=== PATIENT | male | born 1935 | race Caucasian/White ===

== ENCOUNTER 2019-02-27 04:00 | Outpatient (RCR) | payer MEDICARE, OTHER, MEDICAID, SELFPAY | END 2019-03-20 00:01 | LOC: LAB 04:00 | PROVIDERS: Family Provider Family Medicine; Visit Provider Physician Assistant | DX: N39.0 Urinary tract infection, site not specified (principal) | CPT/HCPCS: 81001; 87086 ×2; 87186 ==

== ENCOUNTER 2020-06-24 16:24 | Outpatient (CLI) | payer MEDICARE, OTHER, MEDICAID, SELFPAY ==
[2020-06-24 16:42] LABS: Basophils % 0.4 %; Eosinophils # 0.2 10^3/uL (0.0-0.8); Eosinophils % 1.7 %; Hematocrit 41.6 % (42.0-52.0); Hemoglobin 13.7 g/dL (11.7-16.6); Lymphocytes # 2.2 10^3/uL (0.8-4.8); Lymphocytes % 21.8 %; Mean Corpuscular HGB Conc 32.9 g/dL (30.0-36.0); Mean Corpuscular Hemoglobin 28.8 pg (28.0-34.0); Mean Corpuscular Volume 87.4 fL (80-94); Mean Platelet Volume 10.9 fL (7.4-10.4); Monocytes % 10.3 %; Neutrophils # 6.39 10^3/uL (1.8-7.7); Neutrophils % 64.5 %; Nucleated Red Blood Cells % 0 %; Platelet Count 230 10^3/cmm (130-400); Red Blood Count 4.76 10^6/uL (4.1-5.3); Red Cell Distribution Width 14.9 % (12.1-15.1); White Blood Count 9.9 10^3/uL (4.0-10.0)
== END 2020-06-24 16:25 | disposition home or self-care (01) ==
LOC: LAB 16:29
PROVIDERS: PCP Family Medicine; Visit Provider Family Medicine
DX: K62.5 Hemorrhage of anus and rectum (principal)
CPT/HCPCS: 85025

== ENCOUNTER 2020-06-25 22:05 | Emergency (ER) | payer MEDICARE, OTHER, MEDICAID, SELFPAY ==
[2020-06-25 22:12] VITALS: BP 108/73; PULSE 86; RESP 18; TEMP 36.8; O2SAT 96; BMI 27.1
--- NOTE | 2020-06-25 22:24 | W.ED.NAVMDI ---
HPI - Nausea/Vomiting/Diarrhea General: Chief complaint: Nausea/Vomiting/Diarrhea Stated complaint: upper gi bleed Time Seen by Provider: 06/25/20 22:06 Source: EMS Mode of arrival: EMS Limitations: altered mental status History of Present Illness: HPI Narrative: 85-year-old male who is here from local [facility] with a history of severe dementia and unable to give any history himself. Per [facility] patient has had some bright red blood in his stools last 2 days. He had hemoglobin checked yesterday it was normal. He had one episode of vomiting today that they state was darker and was concerned he is having upper GI bleed. Patient stool here is brown with no signs of blood at this time. He will follow commands and his vital signs here are stable. He does not appear to be in any pain. He had no fever. Associated symtoms: Reports altered mental status Review of Systems General: Reports: ROS unobtainable due to mental status GI: Reports: vomiting and hematochezia Physical Exam Const: COMMON NORMALS: no acute distress; negative for patient oriented x3 EXAM LIMITATIONS: altered mental status HENMT: COMMON NORMALS: normocephalic and atraumatic HEAD & SCALP: normocephalic and atraumatic Eye: COMMON NORMALS: Equal, round and reactive pupils present and EOMs intact bilaterally PUPIL: Yes Equal, round and reactive pupils present Neck/C-Spine: COMMON NORMALS: full ROM and supple Chest: COMMONS NORMALS: normal inspection of the chest and normal palpation of entire chest wall Resp: COMMON NORMALS: normal respiratory effort, No retractions, No use of accessory muscles and clear to auscultation bilaterally AUSCULTATION: clear to auscultation bilaterally Cardio: COMMON NORMALS: regular rate, regular rhythm and No murmurs present (Cardio) RATE: regular rate RHYTHM: regular rhythm GI: COMMON NORMALS: Normal to inspection, nondistended, normoactive bowel sounds present, Soft to palpation, non-tender and no masses PALPATION: Yes Soft to palpation RECTAL EXAM: Yes heme negative stool Extremity: COMMON NORMALS: normal to inspection and full ROM Neuro: COMMON NORMALS: moves all extremities and no focal motor deficits; negative for patient oriented x3 Psych: COMMON NORMALS: cooperative; negative for mental status grossly normal Skin: COMMON NORMALS: no rashes or lesions noted and no wounds GENERAL SKIN EXAM: no rashes or lesions noted Course Vital Signs: Vital signs: Vital Signs Temperature 98.2 F 06/25/20 22:12 Pulse Rate 85 06/25/20 23:17 Respiratory Rate 17 06/25/20 23:17 Blood Pressure 131/74 06/25/20 23:17 Pulse Oximetry 98 06/25/20 23:17 MDM - Nausea/Vomiting/Diarrhea MDM Narrative: Medical decision making narrative: Patient presents here with possible GI bleed. He has had no vomiting here. His hemoglobin and vital signs are all stable. He does not have an increased BUN/creatinine ratio. He has no signs of upper GI bleed. His rectal exam here was negative with brown stool and Hemoccult negative. Spoke to daughter and informed her we could do a NG tube and Gastroccult the gastric contents which she did not believe was necessary and I agree at this time as well. Patient is stable for discharge back to [facility] is to follow hemoglobin return if worsening. Lab Data: Labs: Lab Results 06/25/20 06/25/20 06/25/20 Range/Units 22:10 22:10 22:10 WBC Cancelled Corrected WBC Cancelled RBC Cancelled Hgb Cancelled Hct Cancelled MCV Cancelled MCH Cancelled MCHC Cancelled RDW Cancelled Plt Count Cancelled MPV Cancelled Gran % Cancelled Neut % (Auto) Cancelled Lymph % (Auto) Cancelled Rhea % (Auto) Cancelled Eos % (Auto) Cancelled Baso % (Auto) Cancelled Neut # (Auto) Cancelled Lymph # (Auto) Cancelled Rhea # (Auto) Cancelled Eos # (Auto) Cancelled Baso # (Auto) Cancelled Absolute Gran (aut o) Cancelled Nucleated RBC % (a uto) Cancelled Nucleated RBCs # Cancelled PT Cancelled INR Cancelled Sodium 137 (136-145) mmol/L Potassium 4.9 (3.5-5.1) mmol/L Chloride 102 (98-107) mmol/L Carbon Dioxide 24 (22-29) mmol/L Anion Gap 15.9 (5-19) BUN 19 (8-23) mg/dL Creatinine 0.9 (0.7-1.2) mg/dL GFR Calculation Not Reportable Glucose 100 (65-115) mg/dL Calculated Osmolal ity 286 (285-295) mOsm/k g Calcium 9.6 (8.5-10.5) mg/dL Total Bilirubin 0.5 (0.15-1.2) mg/dL AST 24 (0-40) U/L ALT 34 (0-41) U/L Alkaline Phosphata se 91 (40-130) IU/L Total Protein 6.8 (6.6-8.7) g/dL Albumin 4.3 (3.5-5.2) g/dL Globulin 2.5 (1.3-4.6) g/dL 06/25/20 06/25/20 Range/Units 22:44 22:44 WBC 10.8 H Corrected WBC RBC 4.68 Hgb 13.3 Hct 40.7 L MCV 87.0 MCH 28.4 MCHC 32.7 RDW 14.6 Plt Count 204 MPV 10.8 H Gran % Neut % (Auto) 73.3 Lymph % (Auto) 15.3 Rhea % (Auto) 8.9 Eos % (Auto) 1.1 Baso % (Auto) 0.4 Neut # (Auto) 7.90 H Lymph # (Auto) 1.7 Rhea # (Auto) 1.0 H Eos # (Auto) 0.1 Baso # (Auto) 0.0 Absolute Gran (aut o) Nucleated RBC % (a uto) 0 Nucleated RBCs # 0.0 PT 14.00 INR 1.05 Sodium (136-145) mmol/L Potassium (3.5-5.1) mmol/L Chloride (98-107) mmol/L Carbon Dioxide (22-29) mmol/L Anion Gap (5-19) BUN (8-23) mg/dL Creatinine (0.7-1.2) mg/dL GFR Calculation Glucose (65-115) mg/dL Calculated Osmolal ity (285-295) mOsm/k g Calcium (8.5-10.5) mg/dL Total Bilirubin (0.15-1.2) mg/dL AST (0-40) U/L ALT (0-41) U/L Alkaline Phosphata se (40-130) IU/L Total Protein (6.6-8.7) g/dL Albumin (3.5-5.2) g/dL Globulin (1.3-4.6) g/dL Discharge Plan Discharge Patient Disposition: Home Clinical Impression: Vomiting Qualifiers: Vomiting type: unspecified Vomiting Intractability: non-intractable Nausea presence: with nausea Qualified Code(s): R11.2 - Nausea with vomiting, unspecified Condition: Stable Prescriptions: New ondansetron 4 mg tablet,disintegrating 4 mg PO Q6H PRN (Reason: nausea and vomiting) Qty: 14 RF: 0 Discharge Orders: Discharge ED (Routine); Ordered 06/25/20 Ordered By: Zuly Byrne Referrals: Hever Jacobsen MD [Primary Care Provider] - 1-3 days Discharge Diet: Advance as tolerated Discharge Activity: Resume usual activity Patient Instructions: Acute Nausea and Vomiting (ED) Coding Level of Care Code ED Pharmaceutical Service Representative for [facility] Fwd Exam Comprehensive
[2020-06-25 22:36] LABS: Alanine Aminotransferase 34 U/L (0-41); Albumin Level 4.3 g/dL (3.5-5.2); Alkaline Phosphatase 91 IU/L (40-130); Anion Gap 15.9 (5-19); Aspartate Amino Transferase 24 U/L (0-40); Blood Urea Nitrogen 19 mg/dL (8-23); Calcium 9.6 mg/dL (8.5-10.5); Carbon Dioxide 24 mmol/L (22-29); Chloride 102 mmol/L (98-107); Globulin 2.5 g/dL (1.3-4.6); Glucose 100 mg/dL (65-115); Osmolality Calculated 286 mOsm/kg (285-295); Potassium 4.9 mmol/L (3.5-5.1); Sodium 137 mmol/L (136-145); Total Bilirubin 0.5 mg/dL (0.15-1.2); Total Protein 6.8 g/dL (6.6-8.7)
[2020-06-25 22:54] LABS: Basophils % 0.4 %; Eosinophils # 0.1 10^3/uL (0.0-0.8); Eosinophils % 1.1 %; Hematocrit 40.7 % (42.0-52.0); Hemoglobin 13.3 g/dL (11.7-16.6); Lymphocytes # 1.7 10^3/uL (0.8-4.8); Lymphocytes % 15.3 %; Mean Corpuscular HGB Conc 32.7 g/dL (30.0-36.0); Mean Corpuscular Hemoglobin 28.4 pg (28.0-34.0); Mean Platelet Volume 10.8 fL (7.4-10.4); Monocytes % 8.9 %; Neutrophils % 73.3 %; Nucleated Red Blood Cells % 0 %; Platelet Count 204 10^3/cmm (130-400); Red Blood Count 4.68 10^6/uL (4.1-5.3); Red Cell Distribution Width 14.6 % (12.1-15.1); White Blood Count 10.8 10^3/uL (4.0-10.0)
[2020-06-25 23:04] LABS: INR 1.05 (0.8-1.2)
[2020-06-25 23:17] VITALS: BP 131/74; PULSE 85; RESP 17; O2SAT 98
[2020-06-25 23:57] VITALS: BP 124/70; PULSE 78; RESP 18; O2SAT 99
== END 2020-06-26 00:18 | disposition home or self-care (01) ==
PROVIDERS: Emergency Provider Emergency Medicine; PCP Family Medicine
DX: R11.2 Nausea with vomiting, unspecified (principal)
CPT/HCPCS: 36415; 80053; 85025; 85610; 86850; 86900; 99283

== ENCOUNTER 2021-01-26 19:03 | Emergency (ER) | payer MEDICARE, OTHER, MEDICAID, SELFPAY ==
[2021-01-26 19:22] VITALS: BP 127/56; PULSE 76; RESP 19; TEMP 36.6; O2SAT 98; BMI 28.2
--- NOTE | 2021-01-26 19:24 | ED_ITS ---
HPI - GI Bleed General: Chief complaint: GI Bleed Stated complaint: RECTAL BLEEDING Time Seen by Provider: 01/26/21 19:23 History of Present Illness: HPI Narrative: 86-year-old male with history of dementia presents from nursing facility GI bleed. He did not complain of any abdominal pain but approximately an hour and half prior to arrival they noted bright red blood on his diaper. He denies any focal pain or focal complaints. According to paperwork he is not on blood thinners. History is otherwise very limited due to his dementia. Review of medical chart reveals similar episode several months ago. That time was decided not to pursue aggressive treatments by family due to severe dementia. Review of Systems Narrative: - CONSTITUTIONAL: Denies weight loss, fever and chills. - HEENT: Denies changes in vision and hearing. - RESPIRATORY: Denies SOB and cough. - CV: Denies palpitations and CP. - GI: Denies abdominal pain, nausea, vomiting and diarrhea. Positive for GI bleed. - : Denies dysuria and urinary frequency. - MSK: Denies myalgia and joint pain. - SKIN: Denies rash and pruritus. - NEUROLOGICAL: Denies headache, weakness, numbness and syncope. - PSYCHIATRIC: Denies suicidal ideation Physical Exam Narrative: EXAM NARRATIVE: - GENERAL: Alert and oriented to self only, according to retirement staff this is his baseline. No acute distress. Well- nourished. - EYES: EOMI. Anicteric. - HENT: Atraumatic, no C-spine tenderness. Moist mucous membranes. No scleral icterus. No cervical lymphadenopathy. - LUNGS: Clear to auscultation bilaterally. No accessory muscle use. Equal lung sounds bilaterally. No respiratory distress. - CARDIOVASCULAR: Regular rate and rhythm. No murmur. No JVD. - ABDOMEN: Soft, mild diffuse tenderness, non-distended. Negative CVA tenderness bilaterally, no rebound or guarding, negative Farrell sign. No palpable masses. - EXTREMITIES: No edema. Non-tender. - SKIN: No rashes or lesions. Warm. - NEUROLOGIC: No meningismus or focal neurological deficits. CN II-XII grossly intact. - PSYCHIATRIC: Cooperative. Appropriate mood and affect. Course Vital Signs: Vital signs: Vital Signs Temperature 98 F 01/26/21 19:22 Pulse Rate 79 01/26/21 20:02 Respiratory Rate 14 01/26/21 20:02 Blood Pressure 135/69 01/26/21 20:38 Pulse Oximetry 97 01/26/21 20:02 MDM - GI Bleed MDM Narrative: Medical decision making narrative: 86-year-old with history of dementia presents due to rectal bleeding. He is hemodynamically stable afebrile nontoxic-appearing. His mental status is at his baseline due to his dementia. 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 Discussed with family and at this time do not desire further intervention. Referral for social work to coordinate palliative care was ordered per family request. At this time I believe patient would be safe for discharge and outpatient follow-up. Return precautions provided. Plan was reviewed with the family who expressed understanding. Questions answered. Patient will follow up with PCP. Patient discharged in stable condition. Lab Data: Labs: Lab Results 01/26/21 01/26/21 01/26/21 19:30 19:30 19:30 WBC 11.6 10^3/uL H 10 ^3/uL (4.0-10.0) RBC 4.03 10^6/uL L 10 ^6/uL (4.1-5.3) Hgb 10.2 g/dL L g/dL (11.7-16.6) Hct 32.6 % L % (42.0-52.0) MCV 80.9 fl fl (80-94) MCH 25.3 pg L pg (28.0-34.0) MCHC 31.3 g/dL g/dL (30.0-36.0) RDW 15.5 % H % (12.1-15.1) Plt Count 263 10^3/cmm 10^3 /cmm (130-400) MPV 10.8 fL H fL (7.4-10.4) Neut % (Auto) 69.0 % % Lymph % (Auto) 16.8 % % Mckenzie % (Auto) 11.3 % % Eos % (Auto) 2.0 % % Baso % (Auto) 0.4 % % Neut # (Auto) 8.03 10^3/uL H 10 ^3/uL (1.8-7.7) Lymph # (Auto) 2.0 10^3/uL 10^3/ uL (0.8-4.8) Mckenzie # (Auto) 1.3 10^3/uL H 10^ 3/uL (0.2-0.9) Eos # (Auto) 0.2 10^3/uL 10^3/ uL (0.0-0.8) Baso # (Auto) 0.1 10^3/uL 10^3/ uL (0.0-0.1) Nucleated RBC % (a uto) 0 % % Nucleated RBCs # 0.0 /100WBC /100W BC PT 14.00 SECONDS SEC ONDS (12.1-14.9) INR 1.05 (0.8-1.2) APTT 33.9 SECONDS SECO NDS (23.9-36.7) Sodium 137 mmol/L mmol/L (136-145) Potassium 4.3 mmol/L mmol/L (3.5-5.1) Chloride 101 mmol/L mmol/L (98-107) Carbon Dioxide 23 mmol/L mmol/L (22-29) Anion Gap 17.3 (5-19) BUN 16 mg/dL mg/dL (8-23) Creatinine 1.0 mg/dL mg/dL (0.7-1.2) GFR Calculation Not Reportable Glucose 102 mg/dL mg/dL (65-115) Calculated Osmolal ity 285 mOsm/kg mOsm/ kg (285-295) Lactate Calcium 9.5 mg/dL mg/dL (8.5-10.5) Total Bilirubin 0.3 mg/dL mg/dL (0.15-1.2) AST 14 U/L U/L (0-40) ALT 12 U/L U/L (0-41) Alkaline Phosphata se 84 IU/L IU/L (40-130) Total Protein 6.6 g/dL g/dL (6.6-8.7) Albumin 3.7 g/dL g/dL (3.5-5.2) Globulin 2.9 g/dL g/dL (1.3-4.6) Lipase 26 U/L U/L (13-60) Blood Type Rho(D) Type Antibody Screen 01/26/21 01/26/21 19:30 19:43 WBC RBC Hgb Hct MCV MCH MCHC RDW Plt Count MPV Neut % (Auto) Lymph % (Auto) Mckenzie % (Auto) Eos % (Auto) Baso % (Auto) Neut # (Auto) Lymph # (Auto) Mckenzie # (Auto) Eos # (Auto) Baso # (Auto) Nucleated RBC % (a uto) Nucleated RBCs # PT INR APTT Sodium Potassium Chloride Carbon Dioxide Anion Gap BUN Creatinine GFR Calculation Glucose Calculated Osmolal ity Lactate 1.7 mmol/L mmol/L (0.5-2.2) Calcium Total Bilirubin AST ALT Alkaline Phosphata se Total Protein Albumin Globulin Lipase Blood Type O Positive Rho(D) Type Positive Antibody Screen Negative Discharge Plan Discharge Prescriptions: No Action ondansetron 4 mg tablet,disintegrating 4 mg PO Q6H PRN (Reason: nausea and vomiting) Qty: 14 RF: 0 Coding Level of Care Code ED Medical Pathologist for Armidag Veronica
--- NOTE | 2021-01-26 19:27 | CTR_ITS ---
PROCEDURE INFORMATION: Exam: CT Angiography Abdomen and Pelvis With Contrast, GI Bleeding Exam date and time: 01/26/2021 7:27 PM Age: 86 years old Clinical indication: Other: Rectal bleeding; Additional info: Gi bleed TECHNIQUE: Imaging protocol: Computed tomographic angiography of the abdomen and pelvis with contrast. 3D rendering (Not supervised by radiologist): MIP and/or 3D reconstructed images were created by the technologist. Total images: 495 Radiation optimization: All CT scans at this facility use at least one of these dose optimization techniques: automated exposure control; mA and/or kV adjustment per patient size (includes targeted exams where dose is matched to clinical indication); or iterative reconstruction. Contrast material: OMNI 350; Contrast volume: 95 ml; Contrast route: INTRAVENOUS (IV); COMPARISON: CT abdomen pelvis wo con [id number] 06/10/2016 5:17 PM RADIATION DOSE METRICS: Total DLP (mGy-cm): 1346.59 FINDINGS: Tubes, catheters and devices: Ventriculoperitoneal shunt. Lungs: Limited assessment of the lung bases fails to reveal evidence for active cardiopulmonary process. COPD/chronic bronchitis. Senile fibrosis. Calcified granulomas of antecedent disease. Mild traction bronchiectasis left lower lobe. Pleural space: Scant left pleural effusion. Mediastinal space: Small hiatal hernia. Aorta: The abdominal aorta is nonaneurysmal. No intimal flap or dissection identified. Mild arteriosclerosis. Celiac trunk and mesenteric arteries: No occlusion or significant stenosis. Renal arteries: No occlusion or hemodynamically significant stenosis. Right iliac arteries: No occlusion or hemodynamically significant stenosis. Left iliac arteries: No occlusion or hemodynamically significant stenosis. Portal Venous System: Portal vein patent. Liver: Rare small hepatic cyst stable since 06/10/2016. No visible hepatic mass. Gallbladder and bile ducts: Contracted. No calcified stones. No ductal dilation. Pancreas: Pancreas is unremarkable. No visible pancreatic ductal ectasia. Spleen: Spleen unremarkable. Adrenal glands: Adrenal glands unremarkable. Kidneys and ureters: No hydronephrosis or perinephric fluid. No visible nephrolithiasis or visible ureterolithiasis. Stomach and bowel: Since last examination of 06/10/2016 there has been development of irregular mucosal thickening of the rectum. There is concern for potential adenocarcinoma of the rectum with a suspected mass on the posterior wall measuring approximately 26 mm x 18 mm x 20 mm. Nonobstructive bowel pattern. No visible significant adynamic or reactive ileus. Markedly redundant colon. Very heavy fecal residue consistent with constipation. Appendix: The appendix is not clearly identified. Intraperitoneal space: No visible pneumoperitoneum or intraperitoneal ascites. Lymph nodes: No visualized enlarged lymph nodes. Urinary bladder: Urinary bladder unremarkable. Reproductive: Marked prostate hypertrophy. Bones/joints: No visible acute osseous abnormality. Compression screw and intramedullary paty fixation of an old left hip fracture. Diffuse idiopathic skeletal hyperostosis. Advanced degenerative disc disease L5/S1. Facet arthrosis. Spondylosis deformans. Soft tissues: Right inguinal hernia containing fat. Myositis ossificans right ileus psoas muscle. Other findings: Motion artifact. CT/CT angio abdomen pelvis [id number] IMPRESSION: 1. Since last examination of 06/10/2016 there has been development of irregular mucosal thickening of the rectum. There is concern for potential adenocarcinoma of the rectum with a suspected mass on the posterior wall measuring approximately 26 mm x 18 mm x 20 mm. 2. Constipation. 3. Other nonurgent, nonemergent, chronic, and age related findings as detailed in text above. Radiation Dose CTDIVOL = (mGy): DLP = 1346.59 (mGy-cm)
[2021-01-26 19:43] LABS: Basophils # 0.1 10^3/uL (0.0-0.1); Basophils % 0.4 %; Eosinophils # 0.2 10^3/uL (0.0-0.8); Hematocrit 32.6 % (42.0-52.0); Hemoglobin 10.2 g/dL (11.7-16.6); Lymphocytes % 16.8 %; Mean Corpuscular HGB Conc 31.3 g/dL (30.0-36.0); Mean Corpuscular Hemoglobin 25.3 pg (28.0-34.0); Mean Corpuscular Volume 80.9 fl (80-94); Mean Platelet Volume 10.8 fL (7.4-10.4); Monocytes # 1.3 10^3/uL (0.2-0.9); Monocytes % 11.3 %; Neutrophils # 8.03 10^3/uL (1.8-7.7); Nucleated Red Blood Cells % 0 %; Platelet Count 263 10^3/cmm (130-400); Red Blood Count 4.03 10^6/uL (4.1-5.3); Red Cell Distribution Width 15.5 % (12.1-15.1); White Blood Count 11.6 10^3/uL (4.0-10.0)
[2021-01-26 20:02] VITALS: BP 140/79; PULSE 79; RESP 14; O2SAT 97
[2021-01-26 20:14] LABS: INR 1.05 (0.8-1.2)
[2021-01-26 20:15] LABS: Partial Thromboplastin Time 33.9 SECONDS (23.9-36.7)
[2021-01-26 20:17] LABS: Lactate (Lactic Acid level) 1.7 mmol/L (0.5-2.2)
[2021-01-26 20:38] VITALS: BP 135/69
[2021-01-26 21:08] LABS: Alanine Aminotransferase 12 U/L (0-41); Albumin Level 3.7 g/dL (3.5-5.2); Alkaline Phosphatase 84 IU/L (40-130); Anion Gap 17.3 (5-19); Aspartate Amino Transferase 14 U/L (0-40); Blood Urea Nitrogen 16 mg/dL (8-23); Calcium 9.5 mg/dL (8.5-10.5); Carbon Dioxide 23 mmol/L (22-29); Chloride 101 mmol/L (98-107); Globulin 2.9 g/dL (1.3-4.6); Glucose 102 mg/dL (65-115); Lipase 26 U/L (13-60); Osmolality Calculated 285 mOsm/kg (285-295); Potassium 4.3 mmol/L (3.5-5.1); Sodium 137 mmol/L (136-145); Total Bilirubin 0.3 mg/dL (0.15-1.2); Total Protein 6.6 g/dL (6.6-8.7)
[2021-01-26] MEDS: iohexol 350 mg/mL 100 mL Btl IV (21:38)
[2021-01-26 23:25] VITALS: BP 122/68; PULSE 73; RESP 16; O2SAT 96
--- NOTE | 2021-01-28 07:28 | DCPLANNER ---
clinical case manager had message to speak with patients family about palliative care options. clinical case manager called Sanna munoz, was told that her and her , patients son, would like for patient to be on hospice care. clinical case manager was told that Cookie Snider, is patients DPOA. clinical case manager called Cookie, spoke with her about getting palliative care for patient. clinical case manager explained that in the area there was one company that did both hospice and palliative care and that was [employer], and asked if she would like for the company to call her and discuss both hospice and palliative care options with her and options that were available with patient in the long term. Cookie stated that she would like for [employer] to call and speak with her. clinical case manager called Suellen with [employer], faxed patients information and asked for the company to call and speak with Cookie about options for care.
== END 2021-01-26 23:37 | disposition home or self-care (01) ==
PROVIDERS: Emergency Medicine; Emergency Provider Emergency Medicine; PCP Family Medicine
DX: K62.5 Hemorrhage of anus and rectum (principal); F03.90 Unspecified dementia, unspecified severity, without behavioral disturbance, psychotic disturbance, mood disturbance, and anxiety
CPT/HCPCS: 74174; 80053; 83605; 83690; 85025; 85610; 85730; 86850; 86900; 99283; Q9967